=== PATIENT | female | born 1950 | race Caucasian/White ===

== ENCOUNTER 2018-09-03 08:21 | Day surgery (SDC) | payer MEDICARE ==
[~2018-09-03] VITALS: Ht 177.8 cm; Wt 90.8 kg
[2018-09-03 08:53] VITALS: BP 135/85
[2018-09-03] MEDS ORDERED: SODIUM CHLORIDE 0.9% 1,000 ML IV SCH (08:54)
[2018-09-03] MEDS ORDERED: METO25TA35 PO (08:59)
[2018-09-03] MEDS ORDERED: ASPI-496 PO (08:59)
[2018-09-03] MEDS ORDERED: OMEP-110 PO (08:59)
[2018-09-03] MEDS ORDERED: CALC-534 PO (08:59)
[2018-09-03] MEDS ORDERED: NAPR220T77 PO (08:59)
[2018-09-03] MEDS ORDERED: LORA1TAB PO (08:59)
[2018-09-03] MEDS ORDERED: LOSA25TA25 PO (08:59)
[2018-09-03] MEDS ORDERED: ONDA8TAB9 PO (08:59)
[2018-09-03] MEDS ORDERED: ATOR40TA78 PO (08:59)
[2018-09-03] MEDS ORDERED: ACET-711 PO (08:59)
[2018-09-03 09:28] LABS: INTERNATIONAL NORMALIZED RATIO 1.01 (0.93-1.1); PROTHROMBIN TIME 10.6 Seconds (9.6-11.5)
[2018-09-03] MEDS ORDERED: MIDAZOLAM 1 MG/ML, 5ML ONE (09:44)
[2018-09-03] MEDS ORDERED: FENTANYL PF 100 MCG/2ML ONE (09:44)
[2018-09-03] MEDS ORDERED: NALOXONE 1 MG/ML, 2ML ONE (09:44)
[2018-09-03] MEDS ORDERED: FLUMAZENIL 0.1 MG/1 ML, 5ML ONE (09:44)
[2018-09-03] MEDS ORDERED: LIDOCAINE-MPF 1%, 5ML ONE (10:10)
== END 2018-09-03 12:30 | disposition home or self-care (01) ==
LOC: OUT 08:21
PROVIDERS: ATTEND Family Medicine
DX: K76.89 Other specified diseases of liver (principal); C25.1 Malignant neoplasm of body of pancreas; I10 Essential (primary) hypertension
CPT/HCPCS: 36415; 47000; 77012; 85610; 88307; 88341; 88342; 99156; J2250; J3010; J7030; 99157; J2310

== ENCOUNTER → 2018-09-11 | Outpatient (CLI) | payer MEDICARE ==
[~2018-09-11] MED LIST: ACET-711 PO; ASPI-496 PO; ATOR40TA78 PO; CALC-534 PO; LORA1TAB PO; LOSA25TA25 PO; METO25TA35 PO; NAPR220T77 PO; OMEP-110 PO; ONDA8TAB9 PO
== END | disposition home or self-care (01) ==
LOC: PETCFH 13:32
PROVIDERS: ATTEND Family Medicine
DX: C25.1 Malignant neoplasm of body of pancreas (principal); C78.7 Secondary malignant neoplasm of liver and intrahepatic bile duct
CPT/HCPCS: 78815; A9552